=== PATIENT | female | born 1975 | race Caucasian/White ===

== ENCOUNTER → 2017-09-29 | Outpatient (CLI) | payer MEDICAID | LOC: BMCIMAGING 07:56 | PROVIDERS: ATTEND Nurse Practitioner Adult Health | DX: K82.4 Cholesterolosis of gallbladder (principal); K76.9 Liver disease, unspecified ==

== ENCOUNTER → 2017-10-02 | Outpatient (CLI) | payer MEDICAID | LOC: BMCIMAGING 08:36 | PROVIDERS: ATTEND Nurse Practitioner Women's Health | DX: Z12.31 Encounter for screening mammogram for malignant neoplasm of breast (principal) ==

== ENCOUNTER → 2017-10-13 | Outpatient (CLI) | payer MEDICAID ==
[~2017-10-13] MED LIST: IOPAMIDOL (ISOVUE-300) 100 ML BTL ONE
== END ==
LOC: FIMAGING 11:51
PROVIDERS: ATTEND Nurse Practitioner Adult Health
DX: K76.89 Other specified diseases of liver (principal)
CPT/HCPCS: Q9967